=== PATIENT | male | born 1985 | race Caucasian/White ===

== ENCOUNTER → 2020-10-28 | Outpatient (CLI) | payer BC ==
[2020-10-28 12:17] LABS: FREE T4 0.98 NG/DL (0.76-1.46); THYROID STIMULATING HORMONE 0.787 uIU/ML (0.358-3.740)
== END ==
LOC: M LAB 10:31
PROVIDERS: ATTEND Internal Medicine Gastroenterology
DX: K58.0 Irritable bowel syndrome with diarrhea (principal)

== ENCOUNTER → 2020-11-06 | Outpatient (CLI) | payer BC ==
[~2020-11-06] MED LIST: E-Z-PAQUE 96% w/w SUSP 176GM BTL As Ordered ONE
--- NOTE | 2020-11-06 16:49 | REP ---
INDICATION: IBS WITH DIARRHEA. COMPARISON: None. TECHNIQUE: The procedure was performed under the direct supervision of Dr. Bourne. The images were reviewed with Dr. Bourne. Liquid barium was administered and the barium column was followed through the small bowel to the level of the terminal ileum. 1.6 minutes of fluoro time was utilized for this procedure. FINDINGS: The amusement machine mechanic film shows no organomegaly or pathological masses. The intestinal gas pattern is nonspecific. Small bowel transit time is approximately 60 minutes. During fluoroscopy gentle palpation shows all loops are freely movable and pliable. There are no fixed or angulated loops. The small bowel mucosal pattern is normal in course and caliber. There is no transition to suggest a partial small bowel obstruction. Spot filming of the terminal ileum shows it to be unremarkable. IMPRESSION: Small bowel follow-through examination within normal limits. <Electronically signed by Ho Duran > 11/06/20 [id number] <Electronically signed by Bobby Bourne > 11/06/20 [id number]
== END ==
LOC: M RAD 08:58
PROVIDERS: ATTEND Internal Medicine Gastroenterology
DX: K58.0 Irritable bowel syndrome with diarrhea (principal)

== ENCOUNTER → 2020-12-13 | Outpatient (REF) | payer BC | LOC: M LAB REF 11:35 | PROVIDERS: ATTEND Internal Medicine Gastroenterology | DX: K58.0 Irritable bowel syndrome with diarrhea (principal) ==

== ENCOUNTER → 2020-12-13 | Outpatient (CLI) | payer BC | LOC: M LABSMTC 12:01 | PROVIDERS: ATTEND Anesthesiology | DX: Z01.812 Encounter for preprocedural laboratory examination (principal); Z20.828 Contact with and (suspected) exposure to other viral communicable diseases ==

== ENCOUNTER 2020-12-18 10:31 | Day surgery (SDC) | payer BC ==
[~2020-12-18] VITALS: Ht 170.2 cm; Wt 84.8 kg
[~2020-12-18 10:31] MED LIST changes: -E-Z-PAQUE 96% w/w SUSP 176GM BTL As Ordered ONE; +LIDOCAINE 2% 100MG/5ML SDV (FOR ANES.) As Ordered ONE; +NS 1,000 ML IV ONE; +propofoL 200 MG/20 ML VIAL As Ordered ONE
--- NOTE | 2020-12-18 11:42 | ROOR ---
Patient Name: Moisés Patel Procedure Date: 12/18/2020 11:21 AM Date of : 1985 Age: 35 Room: [facility] Gender: Male Note Status: Finalized Procedure: Colonoscopy Indications: Chronic diarrhea Providers: Hadley WEAVER MD Referring MD: Sarkis Springer MD Requesting Provider: Medicines: Monitored Anesthesia Care Complications: No immediate complications. Procedure: Pre-Anesthesia Assessment: - The heart rate, respiratory rate, oxygen saturations, blood pressure, adequacy of pulmonary ventilation, and response to care were monitored throughout the procedure. The Colonoscope was introduced through the anus and advanced to 10 cm into the ileum. The colonoscopy was performed without difficulty. The patient tolerated the procedure well. The quality of the bowel preparation was good. Findings: The perianal and digital rectal examinations were normal. Two sessile polyps were found in the sigmoid colon. The polyps were diminutive in size. These polyps were removed with a cold snare. Resection and retrieval were complete. The colon exam was otherwise without abnormality on direct and retroflexion views. The terminal ileum appeared normal. Impression: - Two diminutive polyps in the sigmoid colon, removed with a cold snare. Resected and retrieved. - The colon examination was otherwise normal on direct and retroflexion views. - The examined portion of the ileum was normal. Recommendation: - Continue present medications. - I'm awaiting lab results and will call you once these become available - Telephone endoscopist for pathology results in 2 weeks. Procedure Code(s): --- Professional --- 37986, Colonoscopy, flexible; with removal of tumor(s), polyp(s), or other lesion(s) by snare technique Diagnosis Code(s): --- Professional --- K52.9, Noninfective gastroenteritis and colitis, unspecified K63.5, Polyp of colon CPT copyright 2019 [employer]. All rights reserved. The codes documented in this report are preliminary and upon director of quality improvement review may be revised to meet current compliance requirements. Hadley Weaver MD Hadley WEAVER MD 12/18/2020 11:42:06 AM Electronically signed by Hadley WEAVER MD Number of Addenda: 0 Note Initiated On: 12/18/2020 11:21 AM Estimated Blood Loss: Estimated blood loss: none.
[2020-12-18 12:31] VITALS: BP 123/81
== END 2020-12-18 12:20 | disposition home or self-care (01) ==
LOC: M OPP 10:31
PROVIDERS: ATTEND Internal Medicine Gastroenterology
DX: K63.5 Polyp of colon (principal); K52.9 Noninfective gastroenteritis and colitis, unspecified; F17.220 Nicotine dependence, chewing tobacco, uncomplicated

== ENCOUNTER 2020-12-31 08:27 | Emergency (ER) | payer BC ==
[~2020-12-31] VITALS: Ht 170.2 cm; Wt 84.1 kg
[2020-12-31] MEDS ORDERED: VANC250C3 (08:36)
[2020-12-31] MEDS ORDERED: VANC125C3 (08:36)
[2020-12-31] MEDS ORDERED: NS 1,000 ML IV ONE (09:30)
[2020-12-31] MEDS ORDERED: MORPHINE 4 MG/ML 1ML VIAL/SYRINGE (J2270) IV ONE ×2 (09:40→12:10)
[2020-12-31] MEDS ORDERED: ONDANSETRON 4MG/2ML VIAL IV ONE (09:40)
[2020-12-31 10:03] LABS: BASO % 0.2 % (0.0-1.0); HEMATOCRIT 45.1 % (42.0-52.0); HEMOGLOBIN 15.4 g/dl (13.5-17.5); LYMPH # 0.9 10^3/uL (1.5-5.0); LYMPH % 9.2 % (24.0-44.0); MEAN CORPUSCULAR HEMOGLOBIN 28.4 pg (27.0-33.0); MEAN CORPUSCULAR HGB CONC 34.1 g/dl (32.0-36.5); MEAN CORPUSCULAR VOLUME 83.1 fl (80.0-96.0); MONO # 0.6 10^3/uL (0.0-0.8); MONO % 5.8 % (2.0-8.0); NEUTROPHILS # 8.3 10^3/uL (1.5-8.5); NEUTROPHILS % 84.5 % (36.0-66.0); PLATELET COUNT, AUTOMATED 304 10^3/uL (150-450); RED BLOOD COUNT 5.43 10^6/uL (4.30-6.10); WHITE BLOOD COUNT 9.9 10^3/uL (4.0-10.0)
[2020-12-31 10:42] LABS: ALBUMIN 4.6 GM/DL (3.2-5.2); BILIRUBIN,DIRECT 0.2 MG/DL (0.0-0.2); BILIRUBIN,TOTAL 1.2 MG/DL (0.2-1.0); TOTAL PROTEIN 7.6 GM/DL (6.4-8.2)
[2020-12-31] MEDS ORDERED: ISOVUE-370 76% 100ML VIAL As Ordered ONE (10:45)
--- NOTE | 2020-12-31 11:12 | REP ---
INDICATION: lower abd pain, diarrhea, h/o c.diff and IBS. COMPARISON: 05/19/2020 TECHNIQUE: Axial contrast-enhanced images from the lung bases to the pubic symphysis using 100 cc Isovue 370 intravenous contrast material. Coronal and sagittal reformations obtained. This CT examination was performed using the following dose reduction techniques: Automated exposure control, adjustment of mA and/or kv according to the patient's size, and the use of iterative reconstruction technique. FINDINGS: Mucosal thickening and pericolonic stranding noted involving the mid ascending through proximal sigmoid colon and compatible with infectious/inflammatory colitis. Small bowel is unremarkable. Terminal ileum and appendix are normal. Sigmoid colon is relatively normal in appearance. Liver, spleen, pancreas, gallbladder, bilateral adrenal glands and kidneys are normal. Pelvis demonstrates normal bladder and age-appropriate prostate/seminal vesicles. No ascites. No free air. No adenopathy. Abdominal aorta and vasculature are normal. Surrounding musculoskeletal structures are intact. Lung bases are clear. IMPRESSION: Infectious/inflammatory colitis involving the mid ascending through proximal sigmoid colon. No associated bowel obstruction or perforation. <Electronically signed by Carl Bazan > 12/31/20 [id number]
[2020-12-31] MEDS ORDERED: VANC125C3 PO (15:03)
[2020-12-31] MEDS ORDERED: ONDA4TAB6 PO (15:04)
[2020-12-31] MEDS ORDERED: HYDR-3713 PO (15:04)
[2020-12-31 15:09] VITALS: BP 123/76
== END 2020-12-31 15:14 | disposition home or self-care (01) ==
LOC: M ED 08:37
DX: A09 Infectious gastroenteritis and colitis, unspecified (principal); K58.9 Irritable bowel syndrome, unspecified; Z86.19 Personal history of other infectious and parasitic diseases; F17.200 Nicotine dependence, unspecified, uncomplicated
CPT/HCPCS: 74177; 80047; 80076; 81001; 83605; 83690; 85025; 87505; 96374; 99284; J2270; J2405; Q9967

== ENCOUNTER → 2021-01-13 | Outpatient (CLI) | payer BC ==
[~2021-01-13] MED LIST changes: +HYDR-3713 PO; -LIDOCAINE 2% 100MG/5ML SDV (FOR ANES.) As Ordered ONE; -NS 1,000 ML IV ONE; +ONDA4TAB6 PO; +VANC125C3; +VANC125C3 PO; +VANC250C3; -propofoL 200 MG/20 ML VIAL As Ordered ONE
== END ==
LOC: M LABSMTC 12:43
PROVIDERS: ATTEND Anesthesiology
DX: Z01.810 Encounter for preprocedural cardiovascular examination (principal); Z20.828 Contact with and (suspected) exposure to other viral communicable diseases

== ENCOUNTER 2021-01-18 13:13 | Day surgery (SDC) | payer BC ==
[~2021-01-18] VITALS: Ht 170.2 cm; Wt 81.6 kg
[~2021-01-18 13:13] MED LIST changes: +FECAL MICROBIOTA PREPARATION 250 ML BTL (J3590) XX ONE; +NS 1,000 ML IV ONE
[2021-01-18] MEDS ORDERED: LIDOCAINE 2% 100MG/5ML SDV (FOR ANES.) As Ordered ONE (14:29)
[2021-01-18] MEDS ORDERED: propofoL 200 MG/20 ML VIAL As Ordered ONE ×2 (14:29→15:31)
--- NOTE | 2021-01-18 15:32 | ROOR ---
Patient Name: Moisés Patel Procedure Date: 01/18/2021 3:10 PM Date of : 1985 Age: 35 Room: [facility] Gender: Male Note Status: Finalized Procedure: Colonoscopy Indications: Fecal transplant for treatment of recurrent Clostridium difficile diarrhea Providers: Hadley Weaver MD Referring MD: Sarkis Springer MD Requesting Provider: Medicines: Monitored Anesthesia Care Complications: No immediate complications. Procedure: Pre-Anesthesia Assessment: - The heart rate, respiratory rate, oxygen saturations, blood pressure, adequacy of pulmonary ventilation, and response to care were monitored throughout the procedure. The Colonoscope was introduced through the anus and advanced to 10 cm into the ileum. The colonoscopy was performed without difficulty. Findings: The perianal and digital rectal examinations were normal. The decision was made to proceed with fecal microbiota transplant (bacteriotherapy). Donor stool was supplied as per protocol. Approximately 250 mL of the donor stool was instilled in the cecum. A detailed colonoscopic exam could not be performed upon scope withdrawal secondary to limited visibility from the instilled stool. This precludes the ability to screen for colon cancer, and the patient was made aware of this prior to the procedure. Impression: - Fecal Microbiota Transplant (Bacteriotherapy) performed in the cecum. - No specimens collected. Recommendation: - The patient will be observed post-procedure, until all discharge criteria are met. - Telephone my office if symptomatic. 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 All rights reserved. The codes documented in this report are preliminary and upon medicare nurse review may be revised to meet current compliance requirements. Hadley Weaver MD Hadley Weaver MD 01/18/2021 3:32:18 PM Electronically signed by Hadley Weaver MD Number of Addenda: 0 Note Initiated On: 01/18/2021 3:10 PM Estimated Blood Loss: Estimated blood loss: none.
[2021-01-18 15:50] VITALS: BP 135/84
== END 2021-01-18 16:06 | disposition home or self-care (01) ==
LOC: M OPP 13:13
PROVIDERS: ATTEND Internal Medicine Gastroenterology
DX: A04.71 Enterocolitis due to Clostridium difficile, recurrent (principal); F17.210 Nicotine dependence, cigarettes, uncomplicated

== ENCOUNTER 2021-07-13 13:25 | Emergency (ER) | payer BC ==
[~2021-07-13] VITALS: Ht 170.2 cm; Wt 81.8 kg
[~2021-07-13 13:25] MED LIST changes: -FECAL MICROBIOTA PREPARATION 250 ML BTL (J3590) XX ONE; -NS 1,000 ML IV ONE
--- NOTE | 2021-07-13 14:53 | REP ---
INDICATION: CHEST PAIN. COMPARISON: None. TECHNIQUE: Portable FINDINGS: The technique utilized in obtaining the radiograph has magnified the cardiac silhouette and accentuated the interstitial markings. The superior mediastinal structures are midline. The cardiac silhouette is unremarkable in size, shape, and position. The diaphragmatic surfaces of the lungs are regular, and the costophrenic angles are clear. The pulmonary trent are clear. The imaged osseous structures are intact. IMPRESSION: There is no acute cardiopulmonary disease. <Electronically signed by Kendrick Navarro > 07/13/21 [id number]
[2021-07-13 14:58] LABS: BASO % 0.5 % (0.0-1.0); EOS % 0.2 % (0.0-3.0); HEMATOCRIT 43.5 % (42.0-52.0); HEMOGLOBIN 15.1 g/dl (13.5-17.5); LYMPH # 1.2 10^3/uL (1.5-5.0); LYMPH % 20.7 % (24.0-44.0); MEAN CORPUSCULAR HEMOGLOBIN 28.1 pg (27.0-33.0); MEAN CORPUSCULAR HGB CONC 34.7 g/dl (32.0-36.5); MONO # 0.5 10^3/uL (0.0-0.8); NEUTROPHILS # 4.1 10^3/uL (1.5-8.5); NEUTROPHILS % 69.9 % (36.0-66.0); PLATELET COUNT, AUTOMATED 305 10^3/uL (150-450); RED BLOOD COUNT 5.37 10^6/uL (4.30-6.10); WHITE BLOOD COUNT 5.9 10^3/uL (4.0-10.0)
[2021-07-13 15:09] LABS: INR 0.94
[2021-07-13 15:10] LABS: PARTIAL THROMBOPLASTIN TIME 28.9 SECONDS (25.9-37.0)
[2021-07-13 15:25] LABS: CK-MB VALUE MASS < 1.0 NG/ML (<3.6); CPK CREATINE PHOSPHOKINASE 100 U/L (39-308); TROPONIN I < 0.02 NG/ML (< 0.10)
[2021-07-13 15:33] LABS: ALBUMIN 4.6 GM/DL (3.2-5.2); ALT/SGPT 42 U/L (12-78); BILIRUBIN,DIRECT 0.2 MG/DL (0.0-0.2); BILIRUBIN,TOTAL 1.4 MG/DL (0.2-1.0); BLOOD UREA NITROGEN 10 MG/DL (7-18); CALCIUM LEVEL 9.8 MG/DL (8.5-10.1); CARBON DIOXIDE LEVEL 28 MEQ/L (21-32); CHLORIDE LEVEL 106 MEQ/L (98-107); CREATININE FOR GFR 0.88 MG/DL (0.70-1.30); GLOMERULAR FILTRATION RATE > 60.0 (>60); GLUCOSE, FASTING 102 MG/DL (70-100); LIPASE 79 U/L (73-393); NT-PRO BNP 6 PG/ML (<125); SODIUM LEVEL 140 MEQ/L (136-145); TOTAL PROTEIN 8.3 GM/DL (6.4-8.2)
[2021-07-13 15:35] LABS: ERYTHROCYTE SEDIMENTATION RATE 3 mm/hr (0-15)
[2021-07-13] MEDS ORDERED: GI COCKTAIL 50ML BTL(HYOSCYAMINE/MAALOX/LIDOCAINE VISCOUS)(1:3:1) PO ONE (16:15)
[2021-07-13] MEDS ORDERED: KETOROLAC 30 MG/ML 1ML VIAL IV ONE (16:15)
[2021-07-13] MEDS ORDERED: ISOVUE-370 76% 100ML VIAL As Ordered ONE (16:21)
--- OUTSIDE RECORDS SUMMARY | 2021-07-13 16:25 | CCD ---
Author Author [facility] Organization [facility] Address Unknown Phone Unavailable Care Team Providers Care Goods Layer Name Role Phone DONTA PANIAGUA MD Unavailable Unavailable DONTA PANIAGUA MD Unavailable Unavailable DONTA PANIAGUA MD Unavailable Unavailable DONTA PANIAGUA MD Unavailable Unavailable DONTA PANIAGUA MD Unavailable Unavailable DONTA PANIAGUA MD Unavailable Unavailable DONTA PANIAGUA MD Unavailable Unavailable DONTA PANIAGUA MD Unavailable Unavailable DONTA PANIAGUA MD Unavailable Unavailable DONTA PANIAGUA MD Unavailable Unavailable DONTA PANIAGUA MD Unavailable Unavailable DONTA PANIAGUA MD Unavailable Unavailable DONTA PANIAGUA MD Unavailable Unavailable DONTA PANIAGUA MD Unavailable Unavailable DONTA PANIAGUA MD Unavailable Unavailable DONTA PANIAGUA MD Unavailable Unavailable DONTA PANIAGUA MD Unavailable Unavailable DONTA PANIAGUA MD Unavailable Unavailable DONTA PANIAGUA MD Unavailable Unavailable DONTA PANIAGUA MD Unavailable Unavailable DONTA PANIAGUA MD Unavailable Unavailable DONTA PANIAGUA MD Unavailable Unavailable DONTA PANIAGUA MD Unavailable Unavailable DONTA PANIAGUA MD Unavailable Unavailable DONTA PANIAGUA MD Unavailable Unavailable DONTA PANIAGUA MD Unavailable Unavailable DONTA PANIAGUA MD Unavailable Unavailable DONTA PANIAGUA MD Unavailable Unavailable DONTA PANIAGUA MD Unavailable Unavailable DONTA PANIAGUA MD Unavailable Unavailable DONTA PANIAGUA MD Unavailable Unavailable REINDL, DONTA GUZMAN Unavailable Unavailable REINDL, DNOTA GUZMAN Unavailable Unavailable REINDL, DONTA GUZMAN Unavailable Unavailable REINDL, DONTA GUZMAN Unavailable Unavailable REINDL, DONTA GUZMAN Unavailable Unavailable REINDL, DONTA GUZMAN Unavailable Unavailable REINDL, DONTA GUZMAN Unavailable Unavailable REINDL, DONTA GUZMAN Unavailable Unavailable REINDL, DONTA GUZMAN Unavailable Unavailable REINDL, DONTA GUZMAN Unavailable Unavailable REINDL, DONTA GUZMAN Unavailable Unavailable EMERTON, A OLIVIER MD Unavailable Unavailable EMERTON, A OLIVIER MD Unavailable Unavailable EMERTON, A OLIVIER MD Unavailable Unavailable EMERTON, A OLIVIER MD Unavailable Unavailable EMERTON, A OLIVIER MD Unavailable Unavailable EMERTON, A OLIVIER MD Unavailable Unavailable EMERTON, A OLIVIER MD Unavailable Unavailable EMERTON, A OLIVIER MD Unavailable Unavailable EMERTON, A OLIVIER MD Unavailable Unavailable EMERTON, A OLIVIER MD Unavailable Unavailable EMERTON, A OLIVIER MD Unavailable Unavailable EMERTON, A OLIVIER MD Unavailable Unavailable EMERTON, A OLIVIER MD Unavailable Unavailable EMERTON, A OLIVIER MD Unavailable Unavailable EMERTON, A OLIVIER MD Unavailable Unavailable EMERTON, A OLIVIER MD Unavailable Unavailable EMERTON, A OLIVIER MD Unavailable Unavailable EMERTON, A OLIVIER MD Unavailable Unavailable EMERTON, A OLIVIER MD Unavailable Unavailable EMERTON, A OLIVIER MD Unavailable Unavailable EMERTON, A OLIVIER MD Unavailable Unavailable EMERTON, A OLIVIER MD Unavailable Unavailable EMERTON, A OLIVIER MD Unavailable Unavailable EMERTON, A OLIVIER MD Unavailable Unavailable EMERTON, A OLIVIER MD Unavailable Unavailable EMERTON, A OLIVIER MD Unavailable Unavailable EMERTON, A OLIVIER MD Unavailable Unavailable EMERTON, A OLIVIER MD Unavailable Unavailable EMERTON, A OLIVIER MD Unavailable Unavailable EMERTON, A OLIVIER MD Unavailable Unavailable EMERTON, A OLIVIER MD Unavailable Unavailable EMERTON, A OLIVIER MD Unavailable Unavailable EMERTON, A OLIVIER MD Unavailable Unavailable EMERTON, A OLIVIER MD Unavailable Unavailable EMERTON, A OLIVIER MD Unavailable Unavailable EMERTON, A OLIVIER MD Unavailable Unavailable EMERTON, A OLIVIER MD Unavailable Unavailable EMERTON, A OLIVIER MD Unavailable Unavailable EMERTON, A OLIVIER MD Unavailable Unavailable EMERTON, A OLIVIER MD Unavailable Unavailable EMERTON, A OLIVIER MD Unavailable Unavailable EMERTON, A OLIVIER MD Unavailable Unavailable EMERTON, A OLIVIER MD Unavailable Unavailable EMERTON, A OLIVIER MD Unavailable Unavailable EMERTON, A OLIVIER MD Unavailable Unavailable EMERTON, A OLIVIER MD Unavailable Unavailable EMERTON, A OLIVIER MD Unavailable Unavailable EMERTON, A OLIVIER MD Unavailable Unavailable EMERTON, A OLIVIER MD Unavailable Unavailable EMERTON, A OLIVIER MD Unavailable Unavailable EMERTON, A OLIVIER MD Unavailable Unavailable EMERTON, A OLIVIER MD Unavailable Unavailable EMERTON, A OLIVIER MD Unavailable Unavailable EMERTON, A OLIVIER MD Unavailable Unavailable EMERTON, A OLIVIER MD Unavailable Unavailable EMERTON, A OLIVIER MD Unavailable Unavailable EMERTON, A OLIVIER MD Unavailable Unavailable EMERTON, A OLIVIER MD Unavailable Unavailable EMERTON, A OLIVIER MD Unavailable Unavailable EMERTON, A OLIVIER MD Unavailable Unavailable EMERTON, A OLIVIER MD Unavailable Unavailable EMERTON, A OLIVIER MD Unavailable Unavailable EMERTON, A OLIVIER MD Unavailable Unavailable EMERTON, A OLIVIER MD Unavailable Unavailable EMERTON, A OLIVIER MD Unavailable Unavailable EMERTON, A OLIVIER MD Unavailable Unavailable EMERTON, A OLIVIER MD Unavailable Unavailable EMERTON, A OLIVIER MD Unavailable Unavailable EMERTON, A OLIVIER MD Unavailable Unavailable EMERTON, A OLIVIER MD Unavailable Unavailable EMERTON, A OLIVIER MD Unavailable Unavailable EMERTON, A OLIVIER MD Unavailable Unavailable EMERTON, A OLIVIER MD Unavailable Unavailable EMERTON, A OLIVIER MD Unavailable Unavailable EMERTON, A OLIVIER MD Unavailable Unavailable EMERTON, A OLIVIER MD Unavailable Unavailable EMERTON, A OLIVIER MD Unavailable Unavailable Sam, Ne Cris PA Unavailable Unavailable Sam, Ne Cris PA Unavailable Unavailable Sam, Ne Crsi PA Unavailable Unavailable Sam, Ne Cris PA Unavailable Unavailable Sam, Ne Cris PA Unavailable Unavailable Sam, Ne Cris PA Unavailable Unavailable Sam, Ne Cris PA Unavailable Unavailable Sam, Ne Cris PA Unavailable Unavailable Sam, Ne Cris PA Unavailable Unavailable Sam, Ne Cris PA Unavailable Unavailable SYMENOW, G CHRISTOPHER PA Unavailable Unavailable SYMENOW, G CHRISTOPHER PA Unavailable Unavailable SYMENOW, G CHRISTOPHER PA Unavailable Unavailable SYMENOW, G CHRISTOPHER PA Unavailable Unavailable SYMENOW, G CHRISTOPHER PA Unavailable Unavailable SYMENOW, G CHRISTOPHER PA Unavailable Unavailable SYMENOW, G CHRISTOPHER PA Unavailable Unavailable SYMENOW, G CHRISTOPHER PA Unavailable Unavailable SYMENOW, G CHRISTOPHER PA Unavailable Unavailable SYMENOW, G CHRISTOPHER PA Unavailable Unavailable SYMENOW, G CHRISTOPHER PA Unavailable Unavailable SYMENOW, Dodie REYESER PA Unavailable Unavailable SYMENOW, G CHRISTOPHER PA Unavailable Unavailable SYMENOW, G CHRISTKARLENEER PA Unavailable Unavailable SYMENOW, G CHRISTOPHER PA Unavailable Unavailable SYMENOW, G CHRISTOPHER PA Unavailable Unavailable Re-disclosure Warning The records that you are about to access may contain information from federally-assisted alcohol or drug abuse programs. If such information is present, then the following federally mandated warning applies: This information has been disclosed to you from records protected by federal confidentiality rules (42 CFR part 2). The federal rules prohibit you from making any further disclosure of this information unless further disclosure is expressly permitted by the written consent of the person to whom it pertains or as otherwise permitted by 42 CFR part 2. A general authorization for the release of medical or other information is NOT sufficient for this purpose. The Federal rules restrict any use of the information to criminally investigate or prosecute any alcohol or drug abuse patient.The records that you are about to access may contain highly sensitive health information, the redisclosure of which is protected by Article 27-F of the [facility] Public Health law. If you continue you may have access to information: Regarding HIV / AIDS; Provided by facilities licensed or operated by the [facility] Office of Mental Health; or Provided by the [facility] Office for People With Developmental Disabilities. If such information is present, then the following [facility] mandated warning applies: This information has been disclosed to you from confidential records which are protected by state law. State law prohibits you from making any further disclosure of this information without the specific written consent of the person to whom it pertains, or as otherwise permitted by law. Any unauthorized further disclosure in violation of state law may result in a fine or retirement sentence or both. A general authorization for the release of medical or other information is NOT sufficient authorization for further disc losure. Family History Family Member Name Family Member Gender Family Member Status Date o f Status Description Data Source(s) Unknown Male Problem [facility] ([facility]) Encounters Encounter Providers Location Date Indications Data Source(s ) Emergency Attender: RICHARD RICHMONDefzhaoer : OLIVIER BERUMEN MD EMERGENCY ROOM-ER 07/08/2021 06:18:00 AM EST - 07/08/2021 06:59:00 AM [facility] Patient discharged. Outpatient Attender: DONTA Rider/Efrain/Terrell/Palma banks 10/28/2020 08:30:00 AM EST [facility] Outpatient Attender: Cris Cardonabhargav White Pawan viola 08/07/2020 07:15:00 AM EST [facility] ([facility]) Outpatient Attender: Cris Tenorio White Prim viola 07/10/2020 07:45:00 AM EST [facility] ([facility]) Immunizations Vaccine Date Status Description Data Source(s) COVID-19 VACCINE Moderna 06/28/2021 12:00:00 AM EDT completed [facility] Vaccine Series Complete: YESThis Data wa s Submitted to [facility] Via [employer]. COVID-19 VACCINE Pfizer 11/12/2020 12:00:00 AM EDT completed [facility] Vaccine Series Complete: YESThis Data wa s Submitted to [facility] Via [employer]. INFLUENZA VIRUS VACCINE QUADRIVALENT 2019- (6 MOS AN D UP) 06/02/2020 12:00:00 AM EDT completed [facility] Medications Medication Brand Name Start Date Product Form Dose Route Admi nistrative Instructions Pharmacy Instructions Status Indications Reaction Description Data Source(s) 17 gram/dose 01/09/2021 12:00:00 AM EDT powder [address] PANIAGUA COLON PREP INSTRUCTIONS DIRECTED SEE DR PANIAGUA COLON PREP INSTRUCTIONS SOLD : 01/13/2021 [facility] POLYETHYLENE GLYCOL 3350 142 MG/ML Oral Solution [Miralax] M iralax 01/08/2021 12:00:00 AM EDT active M EDENT ([facility], ) fidaxomicin 200 MG Oral Tablet [Dificid] Dificid 01/01/2021 12:00: 00 AM EDT ORAL active [facility] ([facility], ) 125 mg 12/31/2020 12:00:00 AM EDT capsule 28 TAKE 1 BY MOUTH TWICE A DAY FOR 1 WEEK THEN 1 CAPSULE ONCE A DAY FOR 1 WEEK THEN 1 CAPSULE EVERY OTHER DAY FOR 2 WEEKS TAKE 1 BY MOUTH TWICE A DAY FOR 1 WEEK T HEN 1 CAPSULE ONCE A DAY FOR 1 WEEK THEN 1 CAPSULE EVERY OTHER DAY FOR 2 WEEKS SOLD: 12/31/2020 [facility] fidaxomicin 200 MG Oral Tablet [Dificid] Dificid 12/31/2020 12:00: 00 AM EDT ORAL completed [facility] ([facility], ) 4 mg 12/31/2020 12:00:00 AM EDT tablet,disintegrating 8 DISSOLVE ONE TABLET BY MOUTH EVERY 6 TO 8 HOURS NEEDED FOR NAUSEA/ VOMITING DISSOLVE ONE TABLET BY MOUTH EVERY 6 TO 8 HOURS NEEDED FOR NAUSEA/ VOMITING SOLD: 12/31/2020 [facility] Acetaminophen 325 MG / Hydrocodone Bitartrate 5 MG Ora l Tablet 5-325 mg HYDROCODONE/ACETAMINOPHEN 12/31/2020 12:00:00 AM EDT tablet 12 TAKE ONE TABLET BY MOUTH EVERY 6 HOURS NEEDED FOR PAIN MAXIMUM DAILY DOSE = 4 TABLETS TAKE ONE TABLET BY MOUTH EVERY 6 HOURS NEEDED FOR PAIN MAXIMUM DAILY DOSE = 4 TABLETS SOLD: 12/31/2020 [facility] 250 mg 12/19/2020 12:00:00 AM EDT capsule 40 TAKE ONE CAPSULE BY MOUTH FOUR TIMES A DAY TAKE ONE CAPSULE BY MOUTH FOUR TIMES A DAY SOLD: 12/19/2020 [facility] 125 mg 12/19/2020 12:00:00 AM EDT capsule 40 TAKE ONE CAPSULE BY MOUTH FOUR TIMES A DAY TAKE ONE CAPSULE BY MOUTH FOUR TIMES A DAY SOLD: 12/19/2020 [facility] Firvanq Firvanq 12/18/2020 12:00:00 AM EDT ORAL active [facility] ([facility], ) Vancomycin 125 MG Oral Capsule Vancomycin HCL 12/18/2020 12:00:00 AM EDT ORAL completed [facility] ([facility], ) Vancomycin 250 MG Oral Capsule [Vancocin] Vancocin 12/18/2020 1 2:00:00 AM EDT ORAL active [facility] ([facility], ) 0.3 % 11/17/2020 12:00:00 AM EDT drops 5 INSTILL 1 DROP INTO LEFT EYE FOUR TIMES A DAY DIRECTED INSTILL 1 DROP INTO LEFT EYE FOUR TIMES A DAY DIRECTED SOLD: 11/17/2020 [facility] No Active Medications 10/28/2020 12:00:00 AM EST completed [facility] ([facility], ) 0.375 mg 10/28/2020 12:00:00 AM EST tablet extended release 12 hr 60 TAKE ONE TABLET BY MOUTH EVERY 6 TO 8 HOURS NEEDED FOR IBS TAKE ONE TABLET BY MOUTH EVERY 6 TO 8 HOURS NEEDED FOR IBS SOLD: 10/30/2020 [facility] Suprep Bowel Prep Kit Suprep Bowel Prep Kit 10/28/2020 12:00:00 AM EST active [facility] ([facility], ) 12 HR Hyoscyamine Sulfate 0.375 MG Extended Release Or al Tablet [Oscimin] Oscimin SR 10/28/2020 12:00:00 AM EST active [facility] ([facility], ) Insurance Providers Payer name Policy type / Coverage type Policy ID Covered democrat ID Covered democrat's relationship to osroio Policy Osorio Plan Information [facility] [place] [facility]/[phone] [id number] [id number] [place] P[place] 302/[id number] [place]2 [id number] [employer] [id number] SP [id number] [place] [id number] Family Dependent [id number] [place] [employer] B [id number] P VYA [id number] [place] OF [place] [id number] SPO [id number] [id number] Problems, Conditions, and Diagnoses Code Display Name Description Problem Type Effective Dates Data Source(s) R07.89 Other chest pain OTHER CHEST PAIN Diagnosis 07/08/2021 06 :18:00 AM [facility] Surgeries/Procedures Procedure Description Date Indications Data Source(s) Colonoscopy Flexible Proximal To Splenic Flexure Diagnostic W/Or 01/18/2021 12:00:00 AM EDT [facility] ([facility], ) Colonoscopy W/ Poly 12/18/2020 12:00:00 AM EDT [facility] ([facility], ) Results ID Date Data Source [id number] 07/08/2021 07:12:00 AM [facility] l DATE OF EXAMINATION: 07/08/2021 6:03 EST CHEST 2 VIEWS HISTORY: Chest pain TECHNIQUE: PA and lateral radiographs of the chest COMPARISON: None. FINDINGS: No evidence of focal consolidation, pneumothorax or large pleural effusion.Lungs are clear. Mediastinal structures are unremarkable. No aggressive osseouslesions. IMPRESSION: No focal consolidation. Electronically signed in PS360 by: Carl Bazan M.D. 07/08/2021 7:06 EST Name Value Range Interpretation Code Description Data Cora rce(s) Supporting Document(s) ID Date Data Source [id number] 07/08/2021 07:11:00 AM EST [facility] Patient: HAYDEN ABDI [id number] [place] [address] [phone], MRegistration Date/Time: 07/08/2021 05:38 Weight:83.9 kg (S). Height/Length:67 inches (S). BMI:29 PAST HISTORYProblems:C diff [Resolved]. Additional Surgeries:Colonoscopy. Medications:None. Allergies:No Known Drug Allergy. FAMILY HISTORYMother: Cancer. INSTRUCTIONSYour Current Medications: .No home medication. (Electronically signed by Richard Che, P.AIvon 07/08/2021 06:59) Addenda for HAYDEN ABDI VisitID: [id number] Date: 07/08/2021 07/08/2021 7:02Patient actually reported resolution of pain from Toradol.(Electronically signed by Richard Che P.A. - 07/08/2021 7:02) Name Value Range Interpretation Code Description Data Cora rce(s) Supporting Document(s) ID Date Data Source [id number] 07/08/2021 06:43:00 AM EST [facility] TSYSORDER [id number] Name Value Range Interpretation Code Description Data Cora rce(s) Supporting Document(s) DDIMER 0.20 mg/LFEU 0.19-0.60 [facility] ID Date Data Source [id number] 07/08/2021 06:43:00 AM EST [facility] TSYSORDER [id number] Name Value Range Interpretation Code Description Data Cora rce(s) Supporting Document(s) PARTIAL THROMBOPLASTIN TIME 25.4 SECONDS 21.3-29.7 [facility] ID Date Data Source [id number] 07/08/2021 06:43:00 AM EST [facility] TSYSORDER [id number] Name Value Range Interpretation Code Description Data Cora rce(s) Supporting Document(s) PROTHROMBIN TIME (PATIENT) 10.5 SECONDS 9.1-11.3 [facility] INR 1.03 0.87-1.06 [facility] ID Date Data Source [id number] 07/08/2021 06:36:00 AM EST [facility] TSYSORDER [id number] Name Value Range Interpretation Code Description Data Cora rce(s) Supporting Document(s) TSH 1.942 uIU/mL 0.358-3.740 [facility] ID Date Data Source [id number] 07/08/2021 06:36:00 AM [facility] TSYSORDER [id number] Name Value Range Interpretation Code Description Data Cora rce(s) Supporting Document(s) FREE T4 1.01 ng/dL 0.76-1.46 [facility] ID Date Data Source [id number] 07/08/2021 06:31:00 AM EST [facility] TSYSORDER [id number] Name Value Range Interpretation Code Description Data Cora rce(s) Supporting Document(s) MAGNESIUM 2.2 mg/dL 1.8-2.4 [facility] ID Date Data Source [id number] 07/08/2021 06:31:00 AM EST [facility] TSYSORDER [id number] Name Value Range Interpretation Code Description Data Cora rce(s) Supporting Document(s) TROPONIN-HIGH SENSITIVITY 4.8 ng/L 0-60.4 [facility] ID Date Data Source [id number] 07/08/2021 06:31:00 AM EST [facility] TSYSORDER [id number] Name Value Range Interpretation Code Description Data Cora rce(s) Supporting Document(s) LIPASE 80 U/L [id number] [facility] ID Date Data Source [id number] 07/08/2021 06:31:00 AM [facility] TSYSORDER [id number] Name Value Range Interpretation Code Description Data [facility] rce(s) Supporting Document(s) GLUCOSE 107 mg/dL 74-106 H [facility] BLOOD UREA NITROGEN 16 mg/dL 7-18 [facility] ital CREATININE 0.92 mg/dl 0.70-1.30 [facility] SODIUM 142 mmol/L 136-145 [facility] POTASSIUM 3.6 mmol/L 3.5-5.1 [facility] CHLORIDE 103 mmol/L 98-107 [facility] CO2 28 mmol/L 21-32 [facility] CALCIUM 8.6 mg/dL 8.5-10.1 [facility] ANION GAP 11.0 mmol/L 5-12 [facility] GLOMERULAR FILTRATION RATE >90 mL/min [facility] GFR IS CALCULATED IN mL/min/1.73m2 BUSTER L FUNCTION: >90MILDLY DECREASED: 60-89MILDY TO MODERATELY DECREASED: 45-59 MODERATELY TO SEVERELY DECREASED: 30-44SEVERELY DECREASED: 15-29RENAL FAILURE: <15 AST 12 U/L 15-37 L [facility] ALT 37 U/L 16-63 [facility] ALKALINE PHOSPHATASE 54 U/L 46-116 [facility] pital TOTAL BILIRUBIN 1.6 mg/dL 0.2-1.0 H [facility] TOTAL PROTEIN 7.7 g/dL 6.4-8.2 [facility] ALBUMIN 4.3 gm/dL 3.4-5.0 [facility] ID Date Data Source [id number] 07/08/2021 06:11:00 AM [facility] TSYSORDER [id number] Name Value Range Interpretation Code Description Data [facility] rce(s) Supporting Document(s) WHITE BLOOD COUNT 5.2 K/mm3 4.0-10.0 [facility]LO[facility] 5.16 M/mm3 4.50-6.00 [facility] HEMOGLOBIN 14.5 gm/dL 14.0-18.0 [facility] HEMATOCRIT 41.0 % 42.0-54.0 L [facility] MEAN CELL VOLUME 79.5 fl 80-96 L [facility] MEAN CORPUSCULAR HEMOGLOBIN 28.1 pg 27.0-31.0 [facility] MEAN CORPUSCULAR HGB CONC 35.4 g/dl 32.0-36.0 [facility] RED CELL DISTRIBUTION WIDTH 12.1 % 10.0-14.5 [facility] PLATELET COUNT 290 K/mm3 172-450 [facility] MEAN PLATELET VOLUME 10.0 fl 9.0-13.0 [facility] pital GRAN % 47.0 % 50-80.0 L [facility] IG% 0.4 % 0.0-0.2 H [facility] LYMPH % 40.8 % 25.0-50.0 [facility] MONO % 10.3 % 2.0-10.0 H [facility] EOS % 1.1 % 0-5.0 [facility] BASO % 0.4 % 0.0-2.0 [facility] GRAN # 2.5 K/mm3 2.0-8.00 [facility] IG# 0.0 K/mm3 0.0-0.2 [facility] LYMPH # 2.1 K/mm3 1.0-5.0 [facility] MONO # 0.5 K/mm3 0.10-1.20 [facility] EOS # 0.1 K/mm3 0.0-0.5 [facility] BASO # 0.0 K/mm3 0.0-0.2 [facility] ID Date Data Source [id number] 01/13/2021 01:05:00 PM EDT [facility] Name Value Range Interpretation Code Description Data Cora rce(s) Supporting Document(s) SARS-CoV-2 (COVID-19) RNA [Presence] in Respiratory specimen by INES with probe detection Not Detected [facility] This lab was ordered by [facility] and reported by [facility] [employer]. ID Date Data Source [id number] 12/18/2020 11:37:00 AM EDT [facility] ([facility], ) Name Value Range Interpretation Code Description Data Cora rce(s) Supporting Document(s) Surgical pathology study Laboratory test result [facility] ([facility], ) FINAL DIAGNOSIS Colon, sigmoid polyps, polypectomy: Hyperplastic polyps. 12/21/2020 - 1329 CLINICAL DIAGNOSIS Diarrhea, irritable bowel 12/18/2020 - 1511 GROSS DIAGNOSIS Received in formalin labeled "sigmoid colon polyps" consists of two fragments of ibrahim tissue measuring 0.4 x 0.3 x 0.2 cm in aggregate. All in one. -SV 12/18/2020 - 1511 Signed ALFIE DUNBAR MD 12/21/2020 1353 ID Date Data Source [id number] 12/13/2020 04:00:00 PM EDT [facility] Name Value Range Interpretation Code Description Data Cora rce(s) Supporting Document(s) Calprotectin [Mass/mass] in Stool 25 ug/g 0-120 Normal (applies to non-numeric results) [facility] ([facility], ) <content>Concentration Interpretatio n Follow-Up</content>
<content><16 - 50 ug/g Normal None</content>
<content>>50 -120 ug/g Borderline Re-evaluate in 4-6 weeks</content>
<content>>120 ug/g Abnormal Repeat as clinically</content>
<content>indicated</content>
<content>Performed at: [facility]</content>
<content>[address] [place] [address] [id number]</content>
<content>Flarer: Kayla Cooper MD, Phone: [phone]</content>
<content></content> ID Date Data Source [id number] 12/13/2020 04:00:00 PM EDT [facility] Name Value Range Interpretation Code Description Data Cora rce(s) Supporting Document(s) Gastrointestinal (GI) Panel Laboratory test result [facility], [facility] This Gastrointestinal PCR Panel detects the following bacteria, parasites and viruses: Campylobacter (jejuni, coli and upsaliensis), Clostridium difficile (toxin A/B), Plesiomonas shigelloides, Salmonella, Yersinia enterocolitica, Vibrio (parahaemolyticus, vulnificus and cholerae), Vibrio clolerae, Enteroaggregative E. coli (EAEC), Enteropathogenis E. coli (EPEC), Enterotoxigenic E. coli (ETEC) it/st, Shiga-like producing E. coli (STEC) stx1/stc2, E.coli O157, Shigella/Enteroinvasive E. coli (EIEC), Cryptosporidium, Cyclospora cayetanensis, Entamoeba histolytica, Giardia lamblia, Adenovirus F 40/41, Astrovirus, Norovirus GI/GII, Rotavirus A and Sapovirus (I, II, IV, V). POSITIVE by MULTIPLEXED NUCLEIC ACID PCR ORGANISM 1: CLOSTRIDIUM DIFFICILE A/B FORMED stool. Performing testing on formed stool from patients who do not have CDI symptoms detects asymptomatic colonized patients (up to 30% of hospitalized patients are colonized with C. difficile). Patients with false positive results may be given unnecessary treatment, placed on contact isolation, and be at increased risk of vancomycin resistant enterococci. ORGANISM 1: CLOSTRIDIUM DIFFICILE A/B ID Date Data Source [id number] 12/13/2020 11:55:00 AM EDT [facility] Name Value Range Interpretation Code Description Data Cora rce(s) Supporting Document(s) SARS-CoV-2 (COVID-19) RNA [Presence] in Respiratory specimen by INES with probe detection Not Detected [facility] This lab was ordered by [facility] and reported by [facility]. ID Date Data Source [id number] 10/28/2020 10:43:[address] [facility], ) Name Value Range Interpretation Code Description Data Cora rce(s) Supporting Document(s) Free T4 0.98 ng/dL 0.76-1.46 Normal (applies to non-numeric resul ts) [facility]) Thyroid Stimulating Hormone 0.787 uIU/ML 0.358-3.740 Norm al (applies to non- numeric results) [facility]) ID Date Data Source [id number] 10/28/2020 10:43:00 AM [facility]) Name Value Range Interpretation Code Description Data Cora rce(s) Supporting Document(s) Tissue transglutaminase IgA Ab [Units/volume] in Serum Labor atory test result 0-3 Normal (applies to non-numeric results) [facility], ) Negative 0 - 3 Weak Positive 4 - 10 Positive >10 . Tissue Transglutaminase (tTG) has been identified as the endomysial antigen. Studies have demonstr- ated that endomysial IgA antibodies have over 99% specificity for gluten sensitive enteropathy. Performed at: [facility] [address] [id number] [place]: Claudia Suarez MD, Phone: [phone] IgA [Mass/volume] in Serum or Plasma 126.0 mg/dL 70-400 Normal (applies to non- numeric results) [facility] ([facility], ) ID Date Data Source [id number] 08/07/2020 12:00:00 AM EST [facility] Name Value Range Interpretation Code Description Data Cora rce(s) Supporting Document(s) SARS coronavirus 2 Ag [facility] This lab was ordered by [facility] and reported by [facility]. ID Date Data Source [id number] 05/19/2020 12:00:00 AM EDT [facility] Imaging Olivier Berumen MD Patient Name: HAYDEN ABDI [address] [facility] Date of : 1985[address] Date of Exam: 05/19/2020JEREMY Shipley [id number]#: Fax: [phone] EXAM: CT ABDOMEN & PELVIS WITHOUT&WITH CONTRASTCLINICAL INFORMATION: Left lower quadrant pain.Low dose [address] scanning of the abdomen and pelvis wasobtained before and after the administration of intravenous contrast using3 mm increments and reconstructed in both sagittal and coronal scan planes. Immediate and delayed post contrast enhanced imaging was obtained throughthe abdomen. 75 cc of Optiray 350 was administered intravenously.There are no prior CT's of the abdomen and pelvis for comparison.The lung bases are clear.The pre-contrast enhanced portion of the examination shows hepatic and splenic densities to be within normal limits. There is no cholelithsThere is no nephroureterolithiasis, hydronephrosis, or hydroureter. Thereare no urinary bladder calcifications.The contrast enhanced portion of the examination shows the liver,gallbladder, spleen, pancreas, adrenal glands and kidneys to be withinnormal limits. The abdominal aorta and paraaortic regions are withinnormal limits. There is no mass or adenopathy. There is no free fluid orfree air. The bowel loops and the mesenteries are within normal limits.Bone window technique throughout the examination shows the osseousstructures to be within normal limits.IMPRESSION:CT findings are within normal limits.Accredited by the [employer] in [place].ANNA Lyons/Amish you for referring HAYDEN ABDI to our office.Electronically Signed - DEEP KINGSLEY DO 05/20/20 8:57 Name Value Range Interpretation Code Description Data Cora rce(s) Supporting Document(s) Procedure Social History Code Duration Value Status Description Data Source(s ) Smoking 08/07/2020 12:00:00 AM EST Patient has never smoked co mpleted Patient has never smoked [facility] ([facility], [facility]) Vital Signs ID Date Data Source UNK Name Value Range Interpretation Code Description Data Source(s) Body height 67 [in_i] 67 [in_i] [facility] ([facility]) 5'7" Body weight 196.00 [lb_av] 196.00 [lb_av] [facility] T ([facility]) Body mass index (BMI) [Ratio] 30.7 kg/m2 30.7 k g/m2 [facility] ([facility]) [place] body weight 148 [lb_av] 148 [lb_av] [facility] T ([facility]) Body weight 88.906 kg 88.906 kg [facility] ([facility]) Body surface area Derived from formula 2.00 m2 2.00 m2 [facility] ([facility]) Systolic blood pressure 148 mm[Hg] 148 mm[Hg] M [facility] ([facility]) Diastolic blood pressure 102 mm[Hg] 102 mm[Hg] [facility] ([facility]) Heart rate 72 /min 72 /min [facility] ([facility], [facility]) Systolic blood pressure 136 mm[Hg] 136 mm[Hg] M EDENT ([facility], [facility]) Diastolic blood pressure 93 mm[Hg] 93 mm[Hg] [facility] ([facility], [facility]) Respiratory rate 16 /min 16 /min [facility] ( [facility], [facility]) Oxygen saturation in Arterial blood by Pulse oximetry 98 % 98 % [facility]) Body temperature 98.4 [degF] 98.4 [degF] [facility] ([facility], [facility]) Body weight 190.00 [lb_av] 190.00 [lb_av] [facility] T ([facility], [facility]) Systolic blood pressure 140 mm[Hg] 140 mm[Hg] M EDENT ([facility], [facility]) Diastolic blood pressure 92 mm[Hg] 92 mm[Hg] [facility] ([facility], [facility]) Heart rate 91 /min 91 /min [facility] ([facility], [facility]) Respiratory rate 16 /min 16 /min [facility] ( [facility], [facility]) Oxygen saturation in Arterial blood by Pulse oximetry 98 % 98 % [facility] ([facility], [facility]) Body temperature 98.6 [degF] 98.6 [degF] [facility] ([facility], [facility]) Body weight 190.00 [lb_av] 190.00 [lb_av] [facility] T ([facility], [facility]) Body height 67 [in_i] 67 [in_i] [facility] ([facility], [facility]) 5'7" Body mass index (BMI) [Ratio] 29.8 kg/m2 29.8 k g/m2 [facility] ([facility], [facility])
--- NOTE | 2021-07-13 17:34 | REPVR ---
PROCEDURE INFORMATION: Exam: CTA Chest With Contrast Exam date and time: 07/13/2021 5:11 PM Age: 35 years old Clinical indication: Pain; Angina pectoris; Additional info: Chest pain, post moderna TECHNIQUE: Imaging protocol: Computed tomographic angiography of the chest with contrast. 3D rendering (Not supervised by radiologist): MIP and/or 3D reconstructed images were created by the technologist. Radiation optimization: All CT scans at this facility use at least one of these dose optimization techniques: automated exposure control; mA and/or kV adjustment per patient size (includes targeted exams where dose is matched to clinical indication); or iterative reconstruction. Contrast material: ISOVUE 370; Contrast volume: 75 ml; Contrast route: INTRAVENOUS (IV); COMPARISON: CR PORTABLE CHEST X-RAY 07/13/2021 2:29 PM FINDINGS: Pulmonary arteries: No evidence of pulmonary artery emboli. Aorta: No evidence of thoracic aortic aneurysm or dissection. Lungs: Unremarkable. No consolidation. No masses. Pleural spaces: Unremarkable. No pneumothorax. No pleural effusion. Heart: Unremarkable. No cardiomegaly. No pericardial effusion. Lymph nodes: Unremarkable. No enlarged lymph nodes. Bones/joints: Unremarkable. No acute fracture. Soft tissues: Unremarkable. IMPRESSION: 1. No pulmonary artery emboli. 2. No acute findings Electronically signed by: Richmond oGodman On 07/13/2021 17:34:12 PM
--- NOTE | 2021-07-13 18:14 | ECGEPIP ---
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
[2021-07-13] MEDS ORDERED: KETO10TAB PO (18:39)
[2021-07-13 18:46] VITALS: BP 134/62
== END 2021-07-13 19:22 | disposition home or self-care (01) ==
LOC: M ED 13:25 → EDBD 13:25 → M ED 19:22
DX: R07.89 Other chest pain (principal); I45.19 Other right bundle-branch block; K58.9 Irritable bowel syndrome, unspecified; Z86.19 Personal history of other infectious and parasitic diseases; F17.200 Nicotine dependence, unspecified, uncomplicated
CPT/HCPCS: 71045; 71275; 80048; 80076; 82550; 82553; 83690; 83880; 84443; 84484; 85025; 85610; 85652; 85730; 86140; 87040; 93005; 93041; 94760; 96374; 99285; J1885; Q9967

== ENCOUNTER → 2021-09-04 | Outpatient (CLI) | payer BC ==
[~2021-09-04] MED LIST changes: +KETO10TAB PO
[2021-09-04 08:59] LABS: APPEARANCE, URINE CLEAR (CLEAR); BACTERIA, URINE AUTO NEGATIVE (NEGATIVE); BILIRUBIN, URINE AUTO NEGATIVE (NEGATIVE); BLOOD, URINE BLOOD 1+ (NEGATIVE); COLOR, URINE YELLOW (YELLOW); GLUCOSE, URINE (UA) AUTO NEGATIVE (NEGATIVE); KETONE, URINE AUTO NEGATIVE (NEGATIVE); LEUKOCYTE ESTERASE, URINE AUTO NEGATIVE (NEGATIVE); MUCUS, URINE SMALL (NEGATIVE); NITRITE, URINE AUTO NEGATIVE (NEGATIVE); PROTEIN, URINE AUTO NEGATIVE (NEGATIVE); RBC, URINE AUTO 4 /HPF (0-3); SPECIFIC GRAVITY URINE AUTO 1.015 (1.002-1.035); SQUAMOUS EPITHELIAL CELL UR AU 0 /HPF (0-6); WBC, URINE AUTO 0 /HPF (0-3)
[2021-09-04 09:14] LABS: C REACTIVE PROTEIN QUANTITATIV < 0.30 MG/DL (0.00-0.30); CHOLESTEROL LEVEL 212 MG/DL (<200); CHOLESTEROL RISK RATIO 4.818 (<5); HDL CHOLESTEROL 44 MG/DL (>40); LDL CHOLESTEROL 143 MG/DL (<100); NON-HDL-C 168 MG/DL; RHEUMATOID FACTOR QUANT < 10.0 IU/ML (<15.0); TRIGLYCERIDES LEVEL 125 MG/DL (<150)
[2021-09-06 14:08] LABS: ANTINUCLEAR ANTIBODIES DIRECT Negative (Negative)
== END ==
LOC: EDSEX → M LAB 08:18
PROVIDERS: ATTEND Internal Medicine Cardiovascular Disease
DX: R07.2 Precordial pain (principal); I10 Essential (primary) hypertension

== ENCOUNTER → 2021-10-14 | Outpatient (CLI) | payer BC ==
[~2021-10-14] MED LIST changes: +ATEN25TA PO; +OMEP40CA5 PO
== END ==
LOC: M LABSMTC 12:08
PROVIDERS: ATTEND Anesthesiology
DX: Z01.812 Encounter for preprocedural laboratory examination (principal); Z20.822 Contact with and (suspected) exposure to COVID-19

== ENCOUNTER 2021-10-19 06:33 | Day surgery (SDC) | payer BC ==
[~2021-10-19] VITALS: Ht 170.2 cm; Wt 88.5 kg
[~2021-10-19 06:33] MED LIST changes: +NS 1,000 ML IV ONE
[2021-10-19] MEDS ORDERED: LIDOCAINE 2% INJ 100 MG/5 ML SYRINGE As Ordered ONE (07:07)
[2021-10-19] MEDS ORDERED: propofoL 200 MG/20 ML VIAL As Ordered ONE (07:07)
[2021-10-19] MEDS ORDERED: fentaNYL 100 MCG/2 ML INJECTION As Ordered ONE (07:07)
[2021-10-19 08:35] VITALS: BP 124/80
== END 2021-10-19 09:03 | disposition home or self-care (01) ==
LOC: M OPP 06:33
PROVIDERS: ATTEND Internal Medicine Gastroenterology
DX: K21.9 Gastro-esophageal reflux disease without esophagitis (principal); R07.89 Other chest pain; R12 Heartburn; Z79.899 Other long term (current) drug therapy; Z87.891 Personal history of nicotine dependence
CPT/HCPCS: 43239; 88305; 88342; J3010

== ENCOUNTER → 2022-02-02 | Outpatient (CLI) | payer BC ==
[~2022-02-02] MED LIST changes: -NS 1,000 ML IV ONE
== END ==
LOC: M LABSMTC 10:11
PROVIDERS: ATTEND Anesthesiology
DX: Z01.812 Encounter for preprocedural laboratory examination (principal); Z20.822 Contact with and (suspected) exposure to COVID-19

== ENCOUNTER 2022-02-07 13:03 | Day surgery (SDC) | payer BC ==
[~2022-02-07] VITALS: Ht 170.2 cm; Wt 89.5 kg
[~2022-02-07 13:03] MED LIST changes: +NS 1,000 ML IV ONE; +SUCR1TAB56 PO
[2022-02-07] MEDS ORDERED: fentaNYL 100 MCG/2 ML INJECTION As Ordered ONE (14:44)
[2022-02-07] MEDS ORDERED: propofoL 200 MG/20 ML VIAL As Ordered ONE ×2 (14:45→15:21)
[2022-02-07] MEDS ORDERED: LIDOCAINE 2% 100MG/5ML SDV (FOR ANES.) As Ordered ONE (14:45)
[2022-02-07 16:04] VITALS: BP 120/76
== END 2022-02-07 16:02 | disposition home or self-care (01) ==
LOC: M OPP 13:03
PROVIDERS: ATTEND Internal Medicine Gastroenterology
DX: K22.89 Other specified disease of esophagus (principal); R07.89 Other chest pain; R12 Heartburn; Z79.899 Other long term (current) drug therapy; Z87.891 Personal history of nicotine dependence; Z86.19 Personal history of other infectious and parasitic diseases
CPT/HCPCS: 43239; 88305; J3010

== ENCOUNTER 2022-10-14 11:00 | Emergency (ER) | payer BC ==
[~2022-10-14] VITALS: Ht 170.2 cm; Wt 85.9 kg
[~2022-10-14 11:00] MED LIST changes: -NS 1,000 ML IV ONE
[2022-10-14 11:01] VITALS: BP 148/90
[2022-10-14] MEDS ORDERED: CITA10TA7 (11:15)
[2022-10-14 11:49] LABS: BASO % 0.4 % (0.0-1.0); EOS % 0.8 % (0.0-3.0); HEMOGLOBIN 14.9 g/dl (13.5-17.5); LYMPH # 1.7 10^3/uL (1.5-5.0); LYMPH % 34.4 % (24.0-44.0); MEAN CORPUSCULAR HGB CONC 33.9 g/dl (32.0-36.5); MEAN CORPUSCULAR VOLUME 82.7 fl (80.0-96.0); MONO # 0.4 10^3/uL (0.0-0.8); MONO % 8.5 % (2.0-8.0); NEUTROPHILS # 2.7 10^3/uL (1.5-8.5); NEUTROPHILS % 55.7 % (36.0-66.0); PLATELET COUNT, AUTOMATED 283 10^3/uL (150-450); RED BLOOD COUNT 5.32 10^6/uL (4.30-6.10); WHITE BLOOD COUNT 4.8 10^3/uL (4.0-10.0)
[2022-10-14 12:04] LABS: INR 0.95; PROTHROMBIN TIME 12.9 SECONDS (12.5-14.5)
[2022-10-14 12:12] LABS: CK-MB VALUE MASS < 1.0 NG/ML (<3.6); CPK CREATINE PHOSPHOKINASE 104 U/L (46-171); MB/CK RELATIVE INDEX 0.96 (< OR =4)
[2022-10-14 12:13] LABS: ALBUMIN 4.6 G/DL (3.2-5.2); ALKALINE PHOSPHATASE 71 U/L (46-116); ALT/SGPT 31 U/L (7.0-40); AST/SGOT 16 U/L (<34); BILIRUBIN,DIRECT 0.5 MG/DL (<0.4); BILIRUBIN,TOTAL 2.1 MG/DL (0.3-1.2); BLOOD UREA NITROGEN 11 MG/DL (9-23); CALCIUM LEVEL 9.4 MG/DL (8.5-10.1); CARBON DIOXIDE LEVEL 29 MMOL/L (20-31); CHLORIDE LEVEL 105 MMOL/L (98-107); CREATININE FOR GFR 0.78 MG/DL (0.70-1.30); GLOMERULAR FILTRATION RATE > 60.0 (>60); GLUCOSE, FASTING 111 MG/DL (60-100); POTASSIUM SERUM 4.2 MMOL/L (3.5-5.1); SODIUM LEVEL 141 MMOL/L (136-145); TOTAL PROTEIN 7.7 G/DL (5.7-8.2)
== END 2022-10-14 14:13 | disposition home or self-care (01) ==
LOC: M ED 11:00
DX: R07.9 Chest pain, unspecified (principal); I45.10 Unspecified right bundle-branch block; K21.9 Gastro-esophageal reflux disease without esophagitis; I10 Essential (primary) hypertension; F41.9 Anxiety disorder, unspecified; F41.0 Panic disorder [episodic paroxysmal anxiety]; Z79.891 Long term (current) use of opiate analgesic

== ENCOUNTER → 2024-09-25 | Outpatient (CLI) | payer BC ==
[~2024-09-25] MED LIST changes: +CITA10TA7; +ONDA-282 PO; -ONDA4TAB6 PO; +VANC250C12; -VANC250C3
== END ==
LOC: M CARPUL 14:49
PROVIDERS: ATTEND Internal Medicine Cardiovascular Disease
DX: R94.31 Abnormal electrocardiogram [ECG] [EKG] (principal)

== ENCOUNTER → 2024-10-10 | Outpatient (CLI) | payer BC | LOC: M CARPUL 10:58 | PROVIDERS: ATTEND Internal Medicine Cardiovascular Disease | DX: R07.9 Chest pain, unspecified (principal) ==

== ENCOUNTER → 2024-11-12 | Outpatient (REF) | payer BC ==
[~2024-11-12] MED LIST changes: +VANC125C13; +VANC125C13 PO; -VANC125C3; -VANC125C3 PO
[2024-11-12 13:53] LABS: BLOOD UREA NITROGEN 16 MG/DL (9-23); CALCIUM LEVEL 9.8 MG/DL (8.5-10.1); CARBON DIOXIDE LEVEL 28 MMOL/L (20-31); CHLORIDE LEVEL 105 MMOL/L (98-107); CREATININE FOR GFR 0.75 MG/DL (0.70-1.30); GLOMERULAR FILTRATION RATE > 60.0 (>60); GLUCOSE, FASTING 92 MG/DL (60-100); POTASSIUM SERUM 4.3 MMOL/L (3.5-5.1); SODIUM LEVEL 142 MMOL/L (136-145)
== END ==
LOC: M LABWUC 12:24
PROVIDERS: ATTEND Physician Assistant
DX: R07.9 Chest pain, unspecified (principal); I10 Essential (primary) hypertension

== ENCOUNTER → 2025-05-08 | Outpatient (CLI) | payer BC | LOC: M EKG 14:14 | PROVIDERS: ATTEND Physician Assistant | DX: R00.2 Palpitations (principal) ==

== ENCOUNTER → 2025-06-23 | Outpatient (REF) | payer BC | LOC: M LAB REF 11:43 | PROVIDERS: ATTEND Internal Medicine | DX: R57.9 Shock, unspecified (principal) ==